=== PATIENT | female | born 1995 | race Native Hawaiian/Other Pacific Islander ===

== ENCOUNTER 2017-01-03 10:21 | Outpatient (CLI) | payer OTHER ==
[2016-08-31 21:37] VITALS: BP 132/87
== END 2017-01-03 10:22 ==
LOC: LAB 10:21
PROVIDERS: ATTEND Family Medicine
DX: N91.2 Amenorrhea, unspecified (principal)
CPT/HCPCS: 36415; 84702; 84703; 87491; 87591